=== PATIENT | male | born 1965 | race Caucasian/White ===

== ENCOUNTER → 2016-07-18 | Outpatient (CLI) | payer OTHER ==
[~2016-07-18] MED LIST: MULTIVITAMINS1 EAC1 PO; NORCO 7.5-3251 EACH PO; ZYRTEC10 M3 PO
== END ==
LOC: KOH-I 11:55
DX: S42.001A Fracture of unspecified part of right clavicle, initial encounter for closed fracture (principal)
CPT/HCPCS: 73200

== ENCOUNTER → 2016-08-26 | Outpatient (CLI) | payer OTHER ==
[2016-08-26 09:54] LABS: HEMOGLOBIN 15.5 gm/dl (14.0-17.5); RED BLOOD COUNT 5.14 M/UL (4.20-5.50); WHITE BLOOD COUNT 9.3 K/UL (4.5-11.0)
[2016-08-26 10:12] LABS: BUN/CREATININE RATIO 17 (0-10)
== END ==
LOC: OPSV2 09:09
PROVIDERS: Orthopaedic Surgery
DX: Z01.810 Encounter for preprocedural cardiovascular examination (principal); Z01.812 Encounter for preprocedural laboratory examination; S42.021A Displaced fracture of shaft of right clavicle, initial encounter for closed fracture; E11.9 Type 2 diabetes mellitus without complications
CPT/HCPCS: 36415; 80048; 81001; 85025; 93005